=== PATIENT | male | born 1985 | race Caucasian/White ===

== ENCOUNTER 2019-02-07 16:47 | Observation (INO) | payer BC ==
--- NOTE | 2019-02-07 18:27 | ED ---
Back Pain - HPI Summary HPI Summary: c/o muscle spasm in lower back after lifting 4 y/o daughter this morning has been taking ibuprofen with out relief---was unable to stand /get to hospital in private car had to call an ambulance to get to Ed. Has had similar pain but nothing that has last this long---pain at 45 degree leg lift - History of Current Complaint Chief Complaint: EDBackInjuryPain Stated Complaint: LOWER BACK PAIN PER EMS Time Seen by Provider: 02/07/19 18:15 Hx Obtained From: Patient Onset/Duration: Sudden Onset, Lasting Hours - began 12 hours ago Onset/Duration: Atraumatic - lifting 4 y/o girl Timing: Constant Back Pain Location: Is Discrete @ - lumbar /sacral spine bilateral muscles---no actual spine pain Pain Intensity: 9 Pain Scale Used: 0-10 Numeric Character: Spasmodic, Stiffness Aggravating Symptom(s): Movement Alleviating Symptom(s): Nothing Related History: Similar Episode Dx As - Allergies/Home Medications Allergies/Adverse Reactions: Allergies Allergy/AdvReac Type Severity Reaction Status Date / Time No Known Allergies Allergy Verified 02/07/19 18:47 Home Medications: Home Medications Ibuprofen 800 mg PO Q8HR 02/07/19 [History Confirmed 02/07/19] PMH/Surg Hx/FS Hx/Imm Hx Previously Healthy: Yes - Surgical History Surgical History: None Infectious Disease History: No Infectious Disease History: Denies: Traveled Outside the [place] in Last 30 Days - Family History Known Family History: Positive: None - Social History Occupation: Employed Full-time Lives: With Family Alcohol Use: None Substance Use Type: Reports: None Smoking Status (MU): Never Smoked Tobacco Review of Systems Constitutional: Negative Eyes: Negative ENT: Negative Cardiovascular: Negative Respiratory: Negative Gastrointestinal: Negative Genitourinary: Negative Positive: Arthralgia, Myalgia Skin: Negative Neurological: Negative Psychological: Normal All Other Systems Reviewed And Are Negative: Yes Physical Exam Triage Information Reviewed: Yes Vital Signs On Initial Exam: Initial Vitals Pulse BP Pulse Ox 70 148/91 97 02/07/19 16:57 02/07/19 16:57 02/07/19 16:57 Vital Signs Reviewed: Yes Appearance: Positive: Well-Appearing, Well-Nourished, Pain Distress Skin: Positive: Warm, Skin Color Reflects Adequate Perfusion Eyes: Positive: Normal, EOMI, SÁNCHEZ, Conjunctiva Clear ENT: Positive: Normal ENT inspection, Hearing grossly normal. Negative: Trismus , Muffled voice, Hoarse voice Neck: Positive: Supple, Nontender, No Lymphadenopathy Respiratory/Lung Sounds: Positive: Clear to Auscultation, Breath Sounds Present Cardiovascular: Positive: Normal, RRR, S1, S2 Abdomen Description: Negative: CVA Tenderness (R), CVA Tenderness (L) Musculoskeletal: Positive: Strength/ROM Intact, Limited @ - pain 45 degree bilateral straight leg lift Neurological: Positive: Normal, Sensory/Motor Intact, Alert, Oriented to Person Place, Time, CN Intact II-III Psychiatric: Positive: Normal, Affect/Mood Appropriate AVPU Assessment: Alert - [place] Coma Scale Best Eye Response: 4 - Spontaneous Best Motor Response: 6 - Obeys Commands Best Verbal Response: 5 - Oriented Coma Scale Total: 15 Diagnostics - Vital Signs Vital Signs Temp Pulse Resp BP Pulse Ox 02/07/19 17:27 60 129/69 97 02/07/19 17:00 98.1 F 79 18 148/91 97 02/07/19 16:59 67 97 02/07/19 16:57 70 148/91 97 - Laboratory Lab Statement: Any lab studies that have been ordered have been reviewed, and results considered in the medical decision making process. Re-Evaluation - Re-Evaluation First Eval Change: Improved - slight improvement after po meds---still very guarded with movement (rolling to side) Back Pain Course/Dx - Course Assessment/Plan: admit to hospital intractable back pain report given to Dr. Morales - Diagnoses Provider Diagnoses: Paraspinal muscle spasm, Intractable back pain - Provider Notifications Discussed Care Of Patient With: Laurita Morales - 102 Instructed by Provider To: Admit As Observation Admit/Transition Orders Completed By ED Provider: No Discharge - Sign-Out/Discharge Documenting (check all that apply): Patient Departure, Sign-Out Patient Signing out patient TO: Laurita Morales - for obv admission All imaging exams completed and their final reports reviewed: No - Discharge Plan Condition: Fair Disposition: ADMITTED TO [facility] - Billing Disposition and Condition Condition: FAIR Disposition: Admitted to [facility]
[2019-02-07] MEDS ORDERED: Cyclobenzaprine TAB* 10 MG PO ONE (18:31)
[2019-02-07] MEDS ORDERED: HYDROcodone/ACETAMIN 5-325 MG* 1 TAB PO ONE ×2 (18:31→22:13)
[2019-02-07] MEDS ORDERED: Ketorolac INJ* 60 MG/2 ML VIAL IM ONE (19:42)
[2019-02-07] MEDS ORDERED: Diazepam TAB(*) 5 MG PO ONE (20:55)
[2019-02-07] MEDS ORDERED: Lidocaine PATCH 5%* 1 PATCH TRANSDERM ONE (21:45)
[2019-02-07] MEDS ORDERED: Morphine INJ* 2 MG/ML 1 ML SYRINGE (TWO MG - NEW SYRINGE VERSION) IV PRN (23:52)
[2019-02-07] MEDS ORDERED: Acetaminophen TAB* 325 MG PO PRN (23:52)
[2019-02-07] MEDS ORDERED: Ketorolac INJ* 30 MG/ML 1 ML VIAL IV PUSH PRN (23:56)
--- NOTE | 2019-02-08 01:39 | HP ---
CC: Dr. Bolaños * HISTORY AND PHYSICAL: DATE OF ADMISSION: 02/07/19 PRIMARY CARE PROVIDER: Dr. Bolaños. CHIEF COMPLAINT: Back pain. HISTORY OF PRESENT ILLNESS: Mr. Christensen is a 33-year-old healthy male, who states that he was picking up his son earlier on the day of admission. He states that he was getting to a standing position from a squatted position when he suddenly felt sequential pops in his back. He very slowly lowered himself and his son to the floor. He states he then lied on the floor for the next 8 hours or so, rolling only from belly to back and back to belly. When he realized that he was not going to be able to get up, EMS was contacted and he was brought to the emergency room for evaluation. The patient has no focal weakness. 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 He has no numbness or tingling of the legs. He has no incontinence. He does state that the pain is generally better now than when he presented to the emergency room; however, when he attempted to stand and take a few steps, he developed again very severe back pain. PAST MEDICAL HISTORY: None. PAST SURGICAL HISTORY: Tonsillectomy. MEDICATIONS: P.r.n. ibuprofen. ALLERGIES: No known drug allergies. FAMILY HISTORY: Mom is living. She is 57 and has a history of long QT syndrome and hypertension. Dad is living, he is 59 and healthy. SOCIAL HISTORY: The patient does not smoke. He does not drink alcohol. He works with the [employer]. He is . He has 2 children. He indicates that his Kiesha is his healthcare proxy. REVIEW OF SYSTEMS: A complete 11-system review of systems was obtained. Pertinent positives and negative are as per HPI and otherwise negative. PHYSICAL EXAMINATION GENERAL: The patient is a well-developed, young, fit male in the right lateral recumbent position, in no acute distress. Vital Signs: Blood pressure 114/55, pulse 58, respirations 19, temp 98.7, O2 sat 96% on room air. HEENT: Pupils are equal and round. Extraocular muscles are intact. Oropharynx is clear. Oral mucosa is moist. There is no submandibular, cervical , or supraclavicular adenopathy. Thyroid is not enlarged. No thyroid nodules noted. PULMONARY: Lungs are clear to auscultation bilaterally. CARDIAC: Normal S1, S2. Regular rate and rhythm. I do not appreciate any murmurs. There is no lower extremity edema. ABDOMEN: Bowel sounds present. Abdomen is soft, nontender, nondistended. MUSCULOSKELETAL: The patient's moves his limbs slowly and cautiously. Back exam does not reveal any tenderness to palpation overlying the lumbar spine itself or the paravertebral muscles. The muscles do not feel spasmed. SKIN: Warm and dry. There are no rashes. NEURO: Cranial nerves II through XII are grossly intact. Sensation is intact to light touch throughout. Strength is 5/5 and symmetric in the upper extremities. Lower extremity strength is not tested at this time due to the patient's back pain. PSYCH: The patient is alert. He is oriented x3. Affect appears appropriate. DIAGNOSTIC STUDIES/LAB DATA: Labs: None. Lumbar spine x-rays to my interpretation appeared to have no acute findings. ASSESSMENT AND PLAN: Mr. Christensen is a 33-year-old male with no significant past medical history, who was picking up his young child when he developed a popping sensation in his back and immediately developed severe pain, requiring him to lie on the floor for approximately 8 hours before coming to the emergency room for evaluation. 1. Intractable back pain. At this point, the patient's pain is improved; however, this is after he received Lott x2 doses, Flexeril, Valium, and ketorolac, as well as lidocaine patch application. The patient is still unable to ambulate due to the pain. The patient will be to admit the patient under observation status to receive [id number] pain medication and muscle relaxants. PT eval has been ordered for tomorrow morning. My hope is that the patient will be able to slowly get ambulatory in the next 12 hours or so. The patient will have Tylenol for mild pain, oxycodone for moderate pain, and morphine for severe pain. I am also adding p.r.n. ketorolac and standing Flexeril. 2. DVT prophylaxis: According to the adult thrombosis prophylaxis risk factor assessment guide, the patient has a total risk factor score of 0 making him low risk. Ambulation will be utilized for DVT prophylaxis; however, if the patient fails to get mobilizing tomorrow, SCDs could be considered. 3. Code status is full. TIME SPENT: Forty minutes was spent admitting this patient. [id number]/[facility] #: [id number] CASANDRA
[2019-02-08] MEDS: Cyclobenzaprine TAB* 10 MG PO SCH ×3 (02:18→12:48)
[2019-02-08] MEDS: oxyCODONE TAB* 5 MG TAB PO PRN ×2 (08:40→12:47)
[2019-02-08 11:10] LABS: Calcium 9.2 mg/dL (8.6-10.3); EGFR African American 96.9 (>60); EGFR Non-African American 80.1 (>60); Potassium 4.1 mmol/L (3.5-5.0)
[2019-02-08 12:39] VITALS: BP 103/55
--- NOTE | 2019-02-08 19:59 | DS ---
CC: Dr. Bolaños * DISCHARGE SUMMARY: DATE OF ADMISSION: 02/07/19 DATE OF DISCHARGE: 02/08/19 PRIMARY CARE PROVIDER: Dr. Bolaños. ATTENDING PHYSICIAN WHILE IN THE HOSPITAL: Dr. Anamaria Santiago * (dictated by FREDY Gallagher). PRIMARY DIAGNOSIS: Intractable low back pain, likely muscular. SECONDARY DIAGNOSES: None. STUDIES WHILE IN THE HOSPITAL: Lumbar spine x-ray on 02/07/19, impression: Negative. HISTORY OF PRESENT ILLNESS/HOSPITAL COURSE: Reji Christensen is a 33-year-old male without significant past medical history who presented to the emergency department due to intractable back pain after lifting his son. Please see admitting history and physical dictated by Dr. Laurita Morales for further information. On the date of discharge, the patient is feeling that his back pain is more controlled. He was able to walk, sit, and stand with controlled back pain and felt improvement from the muscle relaxers. He was unable to do these things at home prior to reporting to the ED. The patient on the date of discharge denies weakness, changes in sensation, difficulty controlling bowel or bladder, and fever and/or chills. PHYSICAL EXAM: A young white male sitting upright on the side of hospital bed, appearing in no acute distress. Head: Normocephalic, atraumatic. Eyes: PERRL. Sclerae anicteric. ENT: Mucous membranes moist. Neck: Supple without JVD. Lungs: Clear to auscultation throughout. Cardio: Regular rate and rhythm without murmurs, rubs, or gallops. Abdomen: Abdomen is soft, nontender , nondistended. Extremities: No clubbing, cyanosis, or edema. Musculoskeletal : Tenderness to palpation in paraspinal muscles bilaterally in the lower back. No point tenderness to spinous processes throughout lower back and thoracic spine. Neuro: The patient is alert and oriented x3. Sensation to light touch intact and equal throughout lower extremities. Strength is 5/5 in all extremities. DISCHARGE PLAN: Diet: Regular unrestricted diet. Activity: The patient was advised to rest and refrain from lifting until he is able to follow up with his primary care provider. 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 The patient was provided with prescription for oxycodone and his PDMP had no previous prescriptions of narcotics. Reference number [id number]. The patient is advised to alternate between heat and ice on his lower back. The patient is advised to return to the emergency department if he experiences saddle anesthesia, numbness or tingling, or otherwise difficulty controlling bowel or bladder, or new weakness. He additionally was advised to follow up with an outpatient physical therapist. The patient was advised to utilize caution with taking Flexeril and oxycodone. He was advised to not take these medications at the same time. Continued Home Medications: Not applicable. DISCHARGE MEDICATIONS: 1. Ibuprofen 800 mg p.o. q.8 hours p.r.n. for pain. 2. Flexeril 10 mg p.o. t.i.d. p.r.n. 3. Oxycodone 5 mg p.o. q.4 hours p.r.n., maximum daily dose 6 tabs CONDITION ON DISCHARGE: Stable. DISPOSITION: Home. TIME SPENT: Approximately 45 minutes were spent on this discharge, approximately half of this time was spent at the bedside. FREDY GALLAGHER [id number]/[facility] #: [id number] MTDD
[2019-02-08] MEDS ORDERED: Lidocaine Patch REMOVE* 1 NOTE MISC SCH (21:00)
== END 2019-02-08 16:40 | disposition home or self-care (01) ==
LOC: ED 16:47 → MED 23:52
PROVIDERS: ADMIT Hospitalist; ATTEND Internal Medicine
DX: M54.5 Low back pain (principal); M62.838 Other muscle spasm
CPT/HCPCS: 36415; 72110; 80048; 96372; 99283; A9270-GY; G0378; J1885